=== PATIENT | female | born 1980 | race African-American/Black ===

== ENCOUNTER 2022-09-09 20:59 | Emergency (ER) | payer MEDICAID ==
[~2022-09-09] VITALS: Ht 154.9 cm; Wt 59.0 kg
--- NOTE | 2022-09-09 22:00 | NUR ---
BIBS C/O BILATERAL BREAST HEMATOMA S/P BREAST BIOPSY.
--- NOTE | 2022-09-09 22:10 | NUR ---
DESK ASSISTANT AT BEDSIDE
[2022-09-09 22:34] LABS: BASOPHILS % (AUTO) 0.6 % (0.0-2.0); EOSINOPHILS % (AUTO) 1.8 % (0.0-6.0); HEMATOCRIT 34 % (33-45); HEMOGLOBIN 10.8 g/dL (11.5-14.8); LYMPHOCYTES # (AUTO) 0.9 K/uL (0.8-4.8); LYMPHOCYTES % (AUTO) 21.4 % (20.0-44.0); MEAN CORPUSCULAR HGB CONC 32 g/dl (31.0-36.0); MEAN CORPUSCULAR VOLUME 94 fL (82-100); MONOCYTES # (AUTO) 0.3 K/uL (0.1-1.30); MONOCYTES % (AUTO) 6.6 % (2.0-12.0); NEUTROPHILS # (AUTO) 2.9 K/uL (1.8-8.9); NEUTROPHILS % (AUTO) 69.6 % (43.0-81.0); PLATELET COUNT (AUTO) 200 K/uL (150-450); RED BLOOD CELL COUNT(AUTO) 3.58 MIL/uL (4.0-5.2); WHITE BLOOD COUNT (AUTO) 4.2 K/uL (4.3-11.0)
[2022-09-09 23:43] VITALS: BP 145/70
--- NOTE | 2022-09-09 23:43 | NUR ---
Patient discharged to home in stable condition. Written and verbal after care instructions given. Patient verbalizes understanding of instruction.
== END 2022-09-09 23:44 | disposition home or self-care (01) ==
LOC: ER 21:03
DX: N64.89 Other specified disorders of breast (principal)
CPT/HCPCS: 36415; 85025-TC